=== PATIENT | male | born 1955 | race Caucasian/White ===

== ENCOUNTER 2023-05-06 18:38 | Inpatient (IN) | payer OTHER ==
[~2023-05-06] VITALS: Ht 167.6 cm; Wt 61.2 kg
[2023-05-06 22:44] LABS: BASOPHILS # (AUTO) 0.1 K/uL (0.0-0.2); BASOPHILS % (AUTO) 0.9 % (0.0-2.0); EOSINOPHILS # (AUTO) 0.1 K/uL (0.0-0.7); EOSINOPHILS % (AUTO) 1.7 % (0.0-6.0); HEMATOCRIT 40 % (39-51); LYMPHOCYTES # (AUTO) 1.7 K/uL (0.8-4.8); LYMPHOCYTES % (AUTO) 29.8 % (20.0-44.0); MEAN CORPUSCULAR HEMOGLOBIN 30 PG (26.0-33.0); MEAN CORPUSCULAR HGB CONC 32 g/dl (31.0-36.0); MEAN CORPUSCULAR VOLUME 93 fL (80-96); MONOCYTES # (AUTO) 0.5 K/uL (0.1-1.30); MONOCYTES % (AUTO) 8.7 % (2.0-12.0); NEUTROPHILS # (AUTO) 3.4 K/uL (1.8-8.9); NEUTROPHILS % (AUTO) 58.9 % (43.0-81.0); PLATELET COUNT (AUTO) 188 K/uL (150-450); RED BLOOD CELL COUNT(AUTO) 4.32 MIL/uL (4.5-6.0); RED CELL DISTRIBUTION WIDTH 14.7 % (11.5-15.0); WHITE BLOOD COUNT (AUTO) 5.8 K/uL (4.3-11.0)
[2023-05-06 22:56] LABS: CALCIUM, SERUM 9.3 mg/dL (8.5-10.1); CREATININE 0.8 mg/dL (0.6-1.3); POTASSIUM 3.4 mmol/L (3.5-5.1)
[2023-05-06 23:07] LABS: ALANINE AMINOTRANSFERASE 23 U/L (12-78); ALBUMIN 3.3 g/dL (3.4-5.0); ALKALINE PHOSPHATASE 80 U/L (46-116); ASPARTATE AMINOTRANSFERASE 21 U/L (15-37); BILIRUBIN,DIRECT 0.1 mg/dL (0.0-0.2); BILIRUBIN,TOTAL 0.4 mg/dL (0.2-1.0); TOTAL PROTEIN, SERUM 8.5 g/dL (6.4-8.2)
[2023-05-06 23:10] LABS: ACETAMINOPHEN <10 ug/ml (10-30); ALCOHOL, BLOOD < 3 mg/dL (0-10); SALICYLATE < 2.3 mg/dL (2.8-20.0)
[2023-05-07 00:44] LABS: APPEARANCE,URINE CLEAR (CLEAR); BILIRUBIN,URINE 1+ (NEGATIVE); BLOOD, URINE TRACE-INTA Ery/uL (NEGATIVE); COLOR,URINE YELLOW (YELLOW); KETONES,URINE NEGATIVE (NEGATIVE); LEUKOCYTE ESTERASE ,URINE 1+ (NEGATIVE); NITRITE, URINE POSITIVE (NEGATIVE); PROTEIN,URINE NEGATIVE (NEGATIVE); UGLUCOSE NEGATIVE (NEGATIVE)
[2023-05-07 00:47] LABS: ADD URINE CULTURE YES; BACTERIA,URINE Moderate /HPF (None Seen); SQUAMOUS EPITHELIAL CELL,UR Rare /HPF (None Seen)
[2023-05-07 00:58] LABS: AMPHETAMINE, URINE NEGATIVE (NEGATIVE); BARBITURATE, URINE NEGATIVE (NEGATIVE); BENZODIAZEPINE, URINE NEGATIVE (NEGATIVE); CANNABINOID, URINE NEGATIVE (NEGATIVE); COCCAINE, URINE NEGATIVE (NEGATIVE); OPIATE, URINE NEGATIVE (NEGATIVE); PHENCYCLIDINE SCREEN,URINE NEGATIVE (NEGATIVE)
[2023-05-07] MEDS ORDERED: IBUPROFEN 600 MG TABLET PO PRN (01:00)
[2023-05-07] MEDS ORDERED: ONDANSETRON HCL/PF 4 MG/2 ML VIAL IVP PRN (01:00)
[2023-05-07] MEDS ORDERED: POTASSIUM CHLORIDE 20 MEQ TAB.PRT.SR PO ONE ×2 (01:00→04:13)
[2023-05-07 01:35] LABS: CALCIUM, SERUM 9.4 mg/dL (8.5-10.1); CREATININE 0.8 mg/dL (0.6-1.3); POTASSIUM 3.4 mmol/L (3.5-5.1)
[2023-05-07 03:40] VITALS: BP 123/73; TEMP 97.5; O2SAT 96
[2023-05-07] MEDS: ENOXAPARIN SODIUM 40 MG/0.4 ML DISP.SYRIN SQ SCH ×2 (04:18→21:42)
[2023-05-07] MEDS ORDERED: EMTR1TAB12 PO (07:48)
[2023-05-07] MEDS ORDERED: CYAN-51 PO (07:48)
[2023-05-07 08:00] VITALS: BP 108/72; TEMP 97.5; O2SAT 100
[2023-05-07] MEDS: EMTRICITABINE/TENOFOVIR 1 TAB PO SCH (09:36)
[2023-05-07] MEDS: TRAMADOL HCL 50 MG TABLET PO PRN (09:39)
[2023-05-07 16:00] VITALS: BP 101/71; TEMP 97.5; O2SAT 97
[2023-05-07 20:00] VITALS: BP_SYST 118; BP_DIAS 74; BP_DIAS 79; TEMP 97.6; O2SAT 95
[2023-05-07 21:33] VITALS: BP 118/74; TEMP 97.6; O2SAT 95
[2023-05-08] MEDS: TRAMADOL HCL 50 MG TABLET PO PRN ×2 (01:03→08:16)
[2023-05-08 01:30] VITALS: BP 153/97; TEMP 97.8; O2SAT 98
[2023-05-08 06:32] LABS: CALCIUM, SERUM 9.4 mg/dL (8.5-10.1); CREATININE 0.7 mg/dL (0.6-1.3); PHOSPHORUS 4.1 mg/dL (2.5-4.9); POTASSIUM 3.9 mmol/L (3.5-5.1)
[2023-05-08 07:00] VITALS: BP 143/80; TEMP 97.6; O2SAT 97
[2023-05-08] MEDS: EMTRICITABINE/TENOFOVIR 1 TAB PO SCH (08:54)
[2023-05-08] MEDS: DAKINS QUARTER STRENGTH (0.125%) 480 ML BOTTLE TOP SCH (11:37)
[2023-05-08] MEDS: PROSOURCE / PROSTAT (PYXIS) 30 ML UDC PO SCH ×2 (13:07→16:10)
[2023-05-08 16:00] VITALS: BP 139/76; TEMP 97.4; O2SAT 96
[2023-05-08 20:00] VITALS: BP 107/60; TEMP 98; O2SAT 97
[2023-05-08] MEDS: HYDROGEL DRESSING 90 GM TUBE TP SCH (21:30)
[2023-05-08] MEDS: ENOXAPARIN SODIUM 40 MG/0.4 ML DISP.SYRIN SQ SCH (22:33)
[2023-05-08] MEDS: ACETAMINOPHEN 325 MG TABLET PO PRN (22:40)
[2023-05-09 08:00] VITALS: BP 107/63; TEMP 98.3; O2SAT 96
[2023-05-09] MEDS: EMTRICITABINE/TENOFOVIR 1 TAB PO SCH (08:58)
[2023-05-09] MEDS: PROSOURCE / PROSTAT (PYXIS) 30 ML UDC PO SCH ×3 (08:58→17:11)
[2023-05-09] MEDS: HYDROGEL DRESSING 90 GM TUBE TP SCH (09:32)
[2023-05-09] MEDS: DAKINS QUARTER STRENGTH (0.125%) 480 ML BOTTLE TOP SCH (09:39)
[2023-05-09] MEDS: ACETAMINOPHEN 325 MG TABLET PO PRN (14:40)
[2023-05-09 16:11] VITALS: BP 119/74; TEMP 98; O2SAT 94
[2023-05-09 20:25] VITALS: BP 128/81; TEMP 98.1; O2SAT 95
[2023-05-09] MEDS: ENOXAPARIN SODIUM 40 MG/0.4 ML DISP.SYRIN SQ SCH (23:34)
[2023-05-10 00:49] VITALS: BP 128/81; TEMP 98.1; O2SAT 95
[2023-05-10 06:36] LABS: BASOPHILS % (AUTO) 0.3 % (0.0-2.0); EOSINOPHILS # (AUTO) 0.1 K/uL (0.0-0.7); EOSINOPHILS % (AUTO) 1.4 % (0.0-6.0); HEMATOCRIT 39 % (39-51); HEMOGLOBIN 12.8 g/dL (13.5-17.5); LYMPHOCYTES # (AUTO) 2.1 K/uL (0.8-4.8); LYMPHOCYTES % (AUTO) 29.6 % (20.0-44.0); MEAN CORPUSCULAR HEMOGLOBIN 32 PG (26.0-33.0); MEAN CORPUSCULAR HGB CONC 33 g/dl (31.0-36.0); MEAN CORPUSCULAR VOLUME 95 fL (80-96); MONOCYTES # (AUTO) 0.7 K/uL (0.1-1.30); MONOCYTES % (AUTO) 9.5 % (2.0-12.0); NEUTROPHILS # (AUTO) 4.1 K/uL (1.8-8.9); NEUTROPHILS % (AUTO) 59.2 % (43.0-81.0); PLATELET COUNT (AUTO) 195 K/uL (150-450); RED BLOOD CELL COUNT(AUTO) 4.08 MIL/uL (4.5-6.0); RED CELL DISTRIBUTION WIDTH 14.1 % (11.5-15.0)
[2023-05-10 06:58] LABS: CALCIUM, SERUM 9.6 mg/dL (8.5-10.1); CREATININE 0.9 mg/dL (0.6-1.3); POTASSIUM 4.1 mmol/L (3.5-5.1)
[2023-05-10 08:00] VITALS: BP 113/75; TEMP 97.9; O2SAT 96
[2023-05-10] MEDS: HYDROGEL DRESSING 90 GM TUBE TP SCH (09:17)
[2023-05-10] MEDS: PROSOURCE / PROSTAT (PYXIS) 30 ML UDC PO SCH ×3 (09:17→16:49)
[2023-05-10] MEDS: DAKINS QUARTER STRENGTH (0.125%) 480 ML BOTTLE TOP SCH (09:17)
[2023-05-10] MEDS: ACETAMINOPHEN 325 MG TABLET PO PRN (09:18)
[2023-05-10] MEDS: EMTRICITABINE/TENOFOVIR 1 TAB PO SCH (09:18)
[2023-05-10 16:00] VITALS: BP 112/76; TEMP 98.6; O2SAT 96
[2023-05-10 20:00] VITALS: BP 115/72; TEMP 97.6; O2SAT 96
[2023-05-10] MEDS: TRAMADOL HCL 50 MG TABLET PO PRN (20:03)
[2023-05-10] MEDS: ENOXAPARIN SODIUM 40 MG/0.4 ML DISP.SYRIN SQ SCH (21:27)
[2023-05-10] MEDS ORDERED: MAGNESIUM HYDROXIDE 30 ML UDC PO PRN (21:30)
[2023-05-11] MEDS: EMTRICITABINE/TENOFOVIR 1 TAB PO SCH (08:03)
[2023-05-11] MEDS: PROSOURCE / PROSTAT (PYXIS) 30 ML UDC PO SCH ×3 (08:04→16:19)
[2023-05-11] MEDS: HYDROGEL DRESSING 90 GM TUBE TP SCH (08:04)
[2023-05-11] MEDS: DAKINS QUARTER STRENGTH (0.125%) 480 ML BOTTLE TOP SCH (08:04)
[2023-05-11] MEDS: TRAMADOL HCL 50 MG TABLET PO PRN ×2 (08:07→20:10)
[2023-05-11 08:16] VITALS: BP 108/69; TEMP 97.6; O2SAT 97
[2023-05-11 16:11] VITALS: BP 145/102; TEMP 99.1; O2SAT 100
[2023-05-11] MEDS: DOCUSATE SODIUM 100 MG CAPSULE PO SCH (16:19)
[2023-05-11 20:00] VITALS: BP 107/67; TEMP 98.3; O2SAT 95
[2023-05-11 20:58] VITALS: BP 107/67; TEMP 98.3; O2SAT 95
[2023-05-11] MEDS: ENOXAPARIN SODIUM 40 MG/0.4 ML DISP.SYRIN SQ SCH ×3 (22:00→22:34)
[2023-05-12 07:30] VITALS: BP 106/73; TEMP 98; O2SAT 98
[2023-05-12] MEDS: HYDROGEL DRESSING 90 GM TUBE TP SCH (08:20)
[2023-05-12] MEDS: PROSOURCE / PROSTAT (PYXIS) 30 ML UDC PO SCH ×3 (08:20→17:36)
[2023-05-12] MEDS: EMTRICITABINE/TENOFOVIR 1 TAB PO SCH (08:20)
[2023-05-12] MEDS: DOCUSATE SODIUM 100 MG CAPSULE PO SCH ×2 (08:20→17:36)
[2023-05-12] MEDS: TRAMADOL HCL 50 MG TABLET PO PRN ×2 (08:45→23:16)
[2023-05-12 15:00] VITALS: BP_SYST 117; BP_SYST 150; BP_DIAS 70; BP_DIAS 79; TEMP 97.4; TEMP 99.1; O2SAT 96; O2SAT 99
[2023-05-12] MEDS: ENOXAPARIN SODIUM 40 MG/0.4 ML DISP.SYRIN SQ SCH ×2 (22:00→22:26)
[2023-05-12 22:07] VITALS: BP 115/70; TEMP 98.3; O2SAT 96
[2023-05-13 08:00] VITALS: BP 100/63; TEMP 98.9; O2SAT 98
[2023-05-13] MEDS: DOCUSATE SODIUM 100 MG CAPSULE PO SCH ×2 (08:25→16:02)
[2023-05-13] MEDS: PROSOURCE / PROSTAT (PYXIS) 30 ML UDC PO SCH ×3 (08:25→16:02)
[2023-05-13] MEDS: EMTRICITABINE/TENOFOVIR 1 TAB PO SCH (08:25)
[2023-05-13] MEDS: HYDROGEL DRESSING 90 GM TUBE TP SCH (08:29)
[2023-05-13] MEDS: TRAMADOL HCL 50 MG TABLET PO PRN (09:07)
[2023-05-13 16:00] VITALS: BP 109/75; TEMP 97.7; O2SAT 96
[2023-05-13 19:00] VITALS: BP 124/80; TEMP 98.2; O2SAT 96
[2023-05-13 20:00] VITALS: BP 124/80; TEMP 98.2; O2SAT 96
[2023-05-13] MEDS: ENOXAPARIN SODIUM 40 MG/0.4 ML DISP.SYRIN SQ SCH ×2 (21:39→21:43)
[2023-05-14 04:00] VITALS: BP 138/93; TEMP 98.2; O2SAT 96
[2023-05-14] MEDS: ACETAMINOPHEN 325 MG TABLET PO PRN (05:37)
[2023-05-14 08:00] VITALS: BP 99/64; TEMP 98.1; O2SAT 96
[2023-05-14] MEDS: DOCUSATE SODIUM 100 MG CAPSULE PO SCH ×2 (09:16→16:20)
[2023-05-14] MEDS: HYDROGEL DRESSING 90 GM TUBE TP SCH (09:16)
[2023-05-14] MEDS: PROSOURCE / PROSTAT (PYXIS) 30 ML UDC PO SCH ×3 (09:16→16:20)
[2023-05-14] MEDS: EMTRICITABINE/TENOFOVIR 1 TAB PO SCH (09:16)
[2023-05-14] MEDS: TRAMADOL HCL 50 MG TABLET PO PRN ×2 (11:03→21:27)
[2023-05-14] MEDS: NITROFURANTOIN/MONOHYDRATE MACROCRYSTALS 100 MG CAPSULE PO SCH ×2 (12:44→21:06)
[2023-05-14 20:00] VITALS: BP 109/67; TEMP 97.5; O2SAT 97
[2023-05-14] MEDS: ENOXAPARIN SODIUM 40 MG/0.4 ML DISP.SYRIN SQ SCH ×2 (21:07→21:13)
[2023-05-15 05:53] LABS: BASOPHILS % (AUTO) 0.7 % (0.0-2.0); EOSINOPHILS # (AUTO) 0.1 K/uL (0.0-0.7); EOSINOPHILS % (AUTO) 2.1 % (0.0-6.0); HEMATOCRIT 38 % (39-51); HEMOGLOBIN 12.4 g/dL (13.5-17.5); LYMPHOCYTES # (AUTO) 2.1 K/uL (0.8-4.8); LYMPHOCYTES % (AUTO) 36.1 % (20.0-44.0); MEAN CORPUSCULAR HEMOGLOBIN 30 PG (26.0-33.0); MEAN CORPUSCULAR HGB CONC 32 g/dl (31.0-36.0); MEAN CORPUSCULAR VOLUME 92 fL (80-96); MONOCYTES # (AUTO) 0.6 K/uL (0.1-1.30); MONOCYTES % (AUTO) 10.5 % (2.0-12.0); NEUTROPHILS # (AUTO) 2.9 K/uL (1.8-8.9); NEUTROPHILS % (AUTO) 50.6 % (43.0-81.0); PLATELET COUNT (AUTO) 196 K/uL (150-450); RED BLOOD CELL COUNT(AUTO) 4.17 MIL/uL (4.5-6.0); RED CELL DISTRIBUTION WIDTH 14.2 % (11.5-15.0); WHITE BLOOD COUNT (AUTO) 5.7 K/uL (4.3-11.0)
[2023-05-15 06:11] LABS: CALCIUM, SERUM 9.2 mg/dL (8.5-10.1); CREATININE 0.8 mg/dL (0.6-1.3); MAGNESIUM 2.1 mg/dL (1.8-2.4); PHOSPHORUS 3.3 mg/dL (2.5-4.9); POTASSIUM 3.9 mmol/L (3.5-5.1)
[2023-05-15 07:00] VITALS: BP 104/70; TEMP 98.8; O2SAT 97
[2023-05-15] MEDS: EMTRICITABINE/TENOFOVIR 1 TAB PO SCH (09:13)
[2023-05-15] MEDS: NITROFURANTOIN/MONOHYDRATE MACROCRYSTALS 100 MG CAPSULE PO SCH (09:13)
[2023-05-15] MEDS: PROSOURCE / PROSTAT (PYXIS) 30 ML UDC PO SCH ×3 (09:14→16:56)
[2023-05-15] MEDS: DOCUSATE SODIUM 100 MG CAPSULE PO SCH ×2 (09:14→16:55)
[2023-05-15] MEDS: HYDROGEL DRESSING 90 GM TUBE TP SCH (09:16)
[2023-05-15] MEDS: TRAMADOL HCL 50 MG TABLET PO PRN (09:23)
[2023-05-15] MEDS ORDERED: NITR100C6 PO (15:26)
[2023-05-15] MEDS ORDERED: EMTR1TAB12 PO (15:26)
[2023-05-15 16:00] VITALS: BP 121/72; TEMP 97.3; O2SAT 95
== END 2023-05-15 18:40 | DRG 364 ==
LOC: ER 18:41 → MED 05-07 03:00
PROVIDERS: ADMIT Nurse Practitioner Acute Care; ATTEND Nurse Practitioner Family
PROC: 0KBP0ZZ Excision of Left Hip Muscle, Open Approach (ICD-10-PCS; principal; 2023-05-09)
PROC: 0KBN0ZZ Excision of Right Hip Muscle, Open Approach (ICD-10-PCS; 2023-05-09)
PROC: 0KBP0ZZ Excision of Left Hip Muscle, Open Approach (ICD-10-PCS; 2023-05-15)
PROC: 0KBN0ZZ Excision of Right Hip Muscle, Open Approach (ICD-10-PCS; 2023-05-15)
DX: L89.154 Pressure ulcer of sacral region, stage 4 (principal); D68.69 Other thrombophilia; E44.1 Mild protein-calorie malnutrition; R62.7 Adult failure to thrive; E88.09 Other disorders of plasma-protein metabolism, not elsewhere classified; N39.0 Urinary tract infection, site not specified; E87.6 Hypokalemia; G89.29 Other chronic pain; D64.9 Anemia, unspecified; M19.90 Unspecified osteoarthritis, unspecified site; Z74.09 Other reduced mobility; Z59.00 Homelessness unspecified; R53.1 Weakness; Z99.3 Dependence on wheelchair; Z68.21 Body mass index [BMI] 21.0-21.9, adult; B96.20 Unspecified Escherichia coli [E. coli] as the cause of diseases classified elsewhere; Z16.24 Resistance to multiple antibiotics
CPT/HCPCS: 36415; 80048-TC; 80061-TC; 80076-TC; 81001; 83735-TC; 84100-TC; 85025-TC; 87081-TC; 87086-TC; 97110-TC; 97530-TC; 97535-TC; A4223; A6248; A6403; G0378; G0480; J1650